=== PATIENT | male | born 1960 | race Caucasian/White ===

== ENCOUNTER 2018-08-26 12:29 | Outpatient (CLI) | payer BC, SELFPAY ==
[2018-08-26 13:51] LABS: Cholesterol 170 mg/dL (50-200); HDL Cholesterol 40 mg/dL (40-60); LDL CHOLESTEROL 94 mg/dL (<100); Triglyceride 244 mg/dL (30-150)
== END 2018-08-26 12:49 ==
PROVIDERS: PCP Internal Medicine; Visit Provider Student in an Organized Health Care Education/Training Program
DX: I48.0 Paroxysmal atrial fibrillation (principal); E78.00 Pure hypercholesterolemia, unspecified; I10 Essential (primary) hypertension
CPT/HCPCS: 36415; 80061; 83721

== ENCOUNTER 2018-11-04 11:07 | Outpatient (REF) | payer BC, SELFPAY ==
[2018-11-04 20:11] LABS: Anion Gap 6.5 mmol/L (3-11); BUN 20 mg/dL (7-18); CO2 30.5 mmol/L (21.0-32.0); CREATININE 0.93 mg/dL (0.70-1.30); Calcium 9.1 mg/dL (8.5-10.1); Chloride 105 mmol/L (98-107); Glucose 106 mg/dL (70-100); Potassium 3.8 mmol/L (3.5-5.1); Sodium 142 mmol/L (136-145)
== END 2018-11-04 11:27 ==
LOC: NCHCN 11:07
PROVIDERS: PCP Internal Medicine; Visit Provider Physician Assistant Medical
DX: I10 Essential (primary) hypertension (principal)
CPT/HCPCS: 80048

== ENCOUNTER 2020-05-18 08:14 | Outpatient (REF) | payer BC, SELFPAY ==
[2020-05-18 19:16] LABS: Abs Immature Grans 0.02 10^3/uL (0.0-0.06); Absolute Basophil Count 0.04 10^3/uL (0.0-0.2); Absolute Eosinophil Count 0.34 10^3/uL (0.0-0.7); Absolute Lymphocyte Count 1.94 10^3/uL (1.2-3.4); Absolute Monocyte Count 0.81 10^3/uL (0.1-0.8); Absolute Neutrophil Count 4.05 10^3/uL (1.2-6.7); Basophils % 0.6; Eosinophils % 4.7; HCT 43.4 % (40.0-50.0); Immature Grans % 0.3; Lymphocytes % 26.9; MCH 30.8 pg (27.0-33.0); MCHC 34.6 % (32.0-36.0); MCV 89.1 fL (80-95); MPV 10.4 fL (8.0-11.0); Monocytes % 11.3; Neutrophils % 56.2; Nucleated RBC 0 %; Platelet Count 233 10^3/uL (130-400); RBC 4.87 10^6/uL (4.36-5.78); RDW 12.8 % (11.8-14.1); RDW-SD 41.5 fL
[2020-05-18 19:31] LABS: ALT 35 U/L (16-63); AST 20 U/L (15-37); Albumin 4.2 g/dL (3.4-5.0); Alkaline Phosphatase 96 U/L (46-116); Anion Gap 3.4 mmol/L (3-11); BUN 22 mg/dL (7-18); Bilirubin, Total 0.9 mg/dL (0.2-1.0); CO2 30.6 mmol/L (21.0-32.0); CREATININE 0.84 mg/dL (0.70-1.30); Calcium 9.1 mg/dL (8.5-10.1); Calculated LDL 130 mg/dL (<100); Chloride 106 mmol/L (98-107); Cholesterol 208 mg/dL (<200); Glucose 93 mg/dL (74-106); HDL Cholesterol 42 mg/dL (40-60); Potassium 3.9 mmol/L (3.5-5.1); Sodium 140 mmol/L (136-145); Total Protein 7.4 g/dL (6.4-8.2); Triglyceride 180 mg/dL (<150)
[2020-05-18 19:52] LABS: Hemoglobin A1C 5.8 % (<5.7)
== END 2020-05-18 08:34 ==
LOC: NCHCN 08:14
PROVIDERS: PCP Internal Medicine; Visit Provider Physician Assistant
DX: Z00.00 Encounter for general adult medical examination without abnormal findings (principal); E78.5 Hyperlipidemia, unspecified; I10 Essential (primary) hypertension; I48.91 Unspecified atrial fibrillation; G47.30 Sleep apnea, unspecified
CPT/HCPCS: 80053; 80061; 83036; 85025

== ENCOUNTER 2021-06-19 13:25 | Outpatient (REF) | payer BC, SELFPAY ==
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
[2021-06-19 17:57] LABS: ALT 44 U/L (16-63); AST 20 U/L (15-37); Albumin 3.8 g/dL (3.4-5.0); Alkaline Phosphatase 108 U/L (46-116); Anion Gap 8.4 mmol/L (3-11); BUN 22 mg/dL (7-18); Bilirubin, Total 0.5 mg/dL (0.2-1.0); CO2 28.6 mmol/L (21.0-32.0); CREATININE 0.8 mg/dL (0.70-1.30); Chloride 105 mmol/L (98-107); Glucose 108 mg/dL (74-106); LDL CHOLESTEROL 74 mg/dL (<100); Potassium 3.5 mmol/L (3.5-5.1); Sodium 142 mmol/L (136-145); Total Protein 7.3 g/dL (6.4-8.2)
== END 2021-06-19 13:26 | disposition home or self-care (01) ==
LOC: NCHCN 13:25
PROVIDERS: PCP Internal Medicine; Visit Provider Physician Assistant
DX: I10 Essential (primary) hypertension (principal); R73.03 Prediabetes
CPT/HCPCS: 80053; 83721

== ENCOUNTER 2022-06-26 16:29 | Outpatient (REF) | payer BC, SELFPAY ==
[2022-06-26 20:39] LABS: Anion Gap 4.3 mmol/L (3-11); BUN 20 mg/dL (7-18); CO2 31.7 mmol/L (21.0-32.0); Calcium 9.6 mg/dL (8.5-10.1); Chloride 104 mmol/L (98-107); Estimated GFR 84.57 (mL/min/1.73m2); Glucose 106 mg/dL (74-106); Potassium 4.4 mmol/L (3.5-5.1); Sodium 140 mmol/L (136-145)
[2022-06-26 20:43] LABS: Hemoglobin A1C 5.9 % (<5.7)
== END 2022-06-26 16:30 | disposition home or self-care (01) ==
LOC: NCHCN 16:29
PROVIDERS: PCP Internal Medicine; Visit Provider Physician Assistant
DX: Z00.00 Encounter for general adult medical examination without abnormal findings (principal); I10 Essential (primary) hypertension; R73.03 Prediabetes
CPT/HCPCS: 80048; 83036

== ENCOUNTER 2023-06-24 16:40 | Outpatient (REF) | payer BC, SELFPAY ==
[2023-06-24 20:08] LABS: ALT 27 U/L (16-63); AST 19 U/L (15-37); Albumin 3.8 g/dL (3.4-5.0); Alkaline Phosphatase 87 U/L (46-116); BUN 26 mg/dL (7-18); CREATININE 0.9 mg/dL (0.70-1.30); Calcium 9.5 mg/dL (8.5-10.1); Chloride 103 mmol/L (98-107); Estimated GFR 95.37 (mL/min/1.73m2); Glucose 118 mg/dL (74-106); LDL CHOLESTEROL 106 mg/dL (<100); Potassium 3.8 mmol/L (3.5-5.1); Sodium 139 mmol/L (136-145); Total Protein 7.4 g/dL (6.4-8.2)
[2023-06-24 21:33] LABS: Bilirubin, Total 0.5 mg/dL (0.2-1.0)
== END 2023-06-24 16:41 | disposition home or self-care (01) ==
LOC: NCHCN 16:40
PROVIDERS: PCP Internal Medicine; Visit Provider Physician Assistant
DX: Z00.00 Encounter for general adult medical examination without abnormal findings (principal); I10 Essential (primary) hypertension; E78.5 Hyperlipidemia, unspecified
CPT/HCPCS: 80053; 83721

== ENCOUNTER 2023-07-10 11:28 | Outpatient (CLI) | payer BC, SELFPAY ==
--- NOTE | 2023-07-10 11:10 | DI.RAD_ITS ---
Exam(s) XR PELVIS AP EXAM: XR PELVIS AP CLINICAL HISTORY: RIGHT HIP PAIN. TECHNIQUE: 2D digital imaging was performed.One images were obtained. COMPARISON: CR XR HIPS BILAT MIN 2V EA from 12/27/2020 FINDINGS: BONES: No acute fracture is present. No bony destructive lesion is seen. JOINTS: No dislocation present. In the right hip there are marked degenerative changes characterized by joint space narrowing and osteophytes. Subchondral cysts are seen both at the acetabular roof and the femoral head. Moderate degenerative changes are seen in the left hip characterized by joint spa ce narrowing and osteophytes. There is a subchondral cyst in the acetabular roof. SOFT TISSUE: Surgical clips are seen inferior to the pelvis likely reflecting prior vasectomy. IMPRESSION: Osteoarthritis of the hips, right greater than left. DATA REPOSITORY: RADIATION DOSE DELIVERED:
== END 2023-07-10 11:29 | disposition home or self-care (01) ==
LOC: DIORS 11:29
PROVIDERS: PCP Internal Medicine; Referring Provider Internal Medicine; Visit Provider Student in an Organized Health Care Education/Training Program
DX: M16.0 Bilateral primary osteoarthritis of hip (principal)
CPT/HCPCS: 72170

== ENCOUNTER 2023-08-21 02:14 | Outpatient (CLI) | payer BC, SELFPAY ==
[2023-08-21 11:28] LABS: HCT 42.8 % (40.0-50.0); HGB 14.5 g/dL (13.5-17.5); MCH 30.4 pg (27.0-33.0); MCHC 33.9 % (32.0-36.0); MCV 90 fL (80-95); MPV 9.7 fL (8.0-11.0); Platelet Count 213 10^3/uL (130-400); RBC 4.77 10^6/uL (4.36-5.78); RDW 12.4 % (11.8-14.1); RDW-SD 40.9 fL; WBC 8.38 10^3/uL (4.4-10.8)
[2023-08-21 11:48] LABS: Anion Gap 5.4 mmol/L (3-11); BUN 21 mg/dL (7-18); CO2 30.6 mmol/L (21.0-32.0); CREATININE 0.9 mg/dL (0.70-1.30); Calcium 9.2 mg/dL (8.5-10.1); Chloride 104 mmol/L (98-107); Estimated GFR 95.37 (mL/min/1.73m2); Glucose 111 mg/dL (74-106); Potassium 4.2 mmol/L (3.5-5.1); Sodium 140 mmol/L (136-145)
== END 2023-08-21 02:15 | disposition home or self-care (01) ==
LOC: LBO 02:14
PROVIDERS: PCP Internal Medicine; Visit Provider Student in an Organized Health Care Education/Training Program
DX: M16.11 Unilateral primary osteoarthritis, right hip (principal); Z01.818 Encounter for other preprocedural examination
CPT/HCPCS: 36415; 80048; 85027

== ENCOUNTER 2023-09-03 06:08 | Day surgery (SDC) | payer BC, SELFPAY ==
[2023-09-03 06:10] VITALS: BP 132/71; PULSE 56; RESP 16; TEMP 36.2; O2SAT 98
--- OUTSIDE RECORDS SUMMARY | 2023-09-03 06:10 | XMS_ITS | Continuity of Care Document ---
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 Name Role Phone [facility]anna [facility] Primary [facility] Physician [facility] Date[facility]12/22 - 08/12/[address] [address] Encounter Diagnosis Encounter for screening for malignant neoplasm of colon(Final) - Diverticulosis of large intestine without perforation or abscess without bleeding(Final) - Personal history of colonic polyps(Final) - Discharge Disposition: Home or Self Care Attending Physician: Bill Sandy MD Admitting Physician: Bill Sandy MD Referring Physician: Bill Sandy MD Allergies, Adverse Reactions, Alerts Substance Reaction Severity Status erythromycin Unknown Unknown Active amoxicillin Nausea Moderate Active azithromycin Unknown Active sulfa drugs Rash Moderate Active Functional Status 08/12/22 ADLs Independent Family Member Travel History No recent t ravel Recent Travel History No recent travel Other exposure to Infectious Disease Non e 08/06/22 Living Situation Home independently Immunizations Given and Recorded Vaccine Date Status Refusal Reason SARS-CoV-2 (COVID-19) mRNA-1273 vaccine 01/17/21 R ecorded SARS-CoV-2 (COVID-19) mRNA-1273 vaccine 12/20/20 R ecorded Medications aspirin 81 mg oral capsule 0 Refill(s) Start Date: 04/22/22 Status: Ordered metoprolol succinate 25 mg oral tablet, extended release 0 Refill(s) Start Date: 04/22/22 Status: Ordered pravastatin 10 mg oral tablet 0 Refill(s) Start Date: 04/22/22 Status: Ordered Problem List Condition Confirmation Course Effective Dates Status Health St atus Informant Atrial fibrillation Confirmed Active Fatigue Confirmed Active Hypertensive disorder Confirmed Active Injury of ankle Confirmed Active Obstructive sleep apnea syndrome Confirmed Active Sleep disorder Confirmed Active Snoring Confirmed 04/03/18 Active Procedures Procedure Date Related Diagnosis Body Site Status Colonoscopy 1 02/28/19 Completed Appendectomy 1970 Completed Amputation- Toe 2 Complet ed ORIF - Forearm Completed 1polyp of colon 2Right great toe Vital Signs Most recent to oldest [Reference Range]: 1 2 3 Temperature Oral [35.8-37.3 Deg C] 36.5 Deg C (08/12/22 9:11 AM) Temperature Temporal Artery [36-38 Deg C] 35.9 Deg C *LOW* (08/12/22 11:10 AM) 35.9 Deg C *LOW* (08/12/22 10:26 AM) Peripheral Pulse Rate [60-100 bpm] 55 bpm *LOW* (08/12/22 11:10 AM) 57 bpm *LOW* (08/12/22 11:00 AM) 60 bpm (08/12/22 10:56 AM) Heart Rate Monitored [60-100 bpm] 68 bpm (08/12/22 11:10 AM) 58 bpm *LOW* (08/12/22 11:00 AM) 66 bpm (08/12/22 10:56 AM) Respiratory Rate [12-24 br/min] 13 br/min (08/12/22 11:10 AM) 16 br/min (08/12/22 11:00 AM) 17 br/min (08/12/22 10:56 AM) Blood Pressure [90-140/60-90 mmHg] 111/66mmHg (08/12/22 11:10 AM) 107/62mmHg (08/12/22 11:00 AM) 99/58mmHg (08/12/22 10:56 AM) Mean Arterial Pressure, Cuff [65-140 mmHg] 81 mmHg (08/12/22 11:10 AM) 77 mmHg (08/12/22 11:00 AM) 72 mmHg (08/12/22 10:56 AM) Weight 84.000 kg (08/12/22 9:11 AM) Weight Dosing 84.000 kg (08/12/22 9:11 AM) Height 180.000 cm (08/12/22 9:11 AM) Height/Length Dosing 180.000 cm (08/12/22 9:11 AM) Body Mass Index 25.930 kg/m2 (08/12/22 9:11 AM) Social History Social History Type Response Tobacco Never tobacco user T obacco Use:. Sex Male Hospital Discharge Instructions Patient Education 08/12/2022 09:47:25 ss colonoscopy discharge instructions (CUSTOM) COLONOSCOPY / SIGMOIDOSCOPY Following day: Return to full activity, including work. Diet: Eat and drink normally, unless instructed otherwise. Treatment for common after affects: Mild abdominal pain, bloating, or excessive gas: Rest, eat lightly and use a heating pad. Symptoms to watch for and report to your physician: SEVERE abdominal pain or bloating. Fever within 24 hours after procedure. A large amount of rectal bleeding. (A small amount of blood from the rectum is not serious, especially if hemorrhoids are present.) If bright red rectal bleeding occurs, call your physician. you have had a Colonoscopy: Do not attempt to drive a vehicle or operate power equipment of any kind for at least 24 hours after discharge from the hospital. Do not consume alcoholic beverages or other mood-altering drugs on the day of surgery. Mild irritation at needle site: Apply warm, moist pack to area for 20 minutes four times a day for 2-3 days. Call physician if persistent redness and/or drainage at needle site. In the event of any problems after surgery, do not hesitate to contact your doctor, [facility] , or the Emergency Room at [phone]. Diagnosis: Diverticulosis Doctor: Vika Repeat colonoscopy in 5 Years with extened prep. The office will contact you in 5 years to schedulecolonoscopy. Discharge instructions * Grace Blevins: PERFORM Event Display: Discharge Instructions Authored Date: [id number] ATILIOCARLOS Martini :1960 Age:62 years Sex:Male Visit Date:08/12/2022 Primary Care Physician: David Ludwig MD Hospital Discharge Instructions We would like to thank you for allowing us to assist you with your healthcare needs. The following includes patient education materials and information regarding your injury/illness. After you leave the hospital, you may get your health information including your test results, physician notes and discharge information by accessing your Patient Portal. Your Summary Your Care Team Admitting Physician - Bill Sandy MD Attending Physician - Bill Sandy MD Primary Care Physician - [facility], David Aguilar MD Referring Physician - Bill Sandy MD Education Materials COLONOSCOPY / SIGMOIDOSCOPY ? Following day: Return to full activity, including work. Diet: Eat and drink normally, unless instructed otherwise. ? Treatment for common after affects: Mild abdominal pain, bloating, or excessive gas: Rest, eat lightly and use a heating pad. ? Symptoms to watch for and report to your physician: SEVERE abdominal pain or bloating. ? Fever within 24 hours after procedure. ? A large amount of rectal bleeding. (A small amount of blood from the rectum is not serious, especially if hemorrhoids are present.) ? If bright red rectal bleeding occurs, call your physician. ? you have had a Colonoscopy: Do not attempt to drive a vehicle or operate power equipment of any kind for at least 24 hours after discharge from the hospital. ? Do not consume alcoholic beverages or other mood-altering drugs on the day of surgery. ? Mild irritation at needle site: Apply warm, moist pack to area for 20 minutes four times a day for 2-3 days. ? Call physician if persistent redness and/or drainage at needle site. ? In the event of any problems after surgery, do not hesitate to contact your doctor, [facility] , or the Emergency Room at [phone]. Diagnosis: Diverticulosis Doctor: Vika Repeat colonoscopy in 5 Years with extened prep. The office will contact you in 5 years to schedulecolonoscopy. Patient Name:CARLOS TRIMBLE I have received this information and my questions have been answered. Patient/Emission Specialist Name: Patient/Emission Specialist Signature: Relationship to Patient: Witness Name/Signature: Date: Electronically Signed on: 08/12/2022 10:48 ESTSigned by:BERTO RIZZO study * Danielle Mcfarland: PERFORM Event Display: Telemetry Strips Authored Date: [id number] History and physical note * Danielle Mcfarland: PERFORM Event Display: History and Physical Authored Date: [id number] * Bill Sandy MD: PERFORM Event Display: History and Physical Authored Date: [id number] ATILIO CARLOS :1960 Age:62 years Sex:Male Visit Date:08/12/2022 Primary Care Physician: David Ludwig MD See paper H&P; pt examined. Proceed as planned.? Bill Sandy MD 08/12/2022 ?? Electronically Signed on 08/12/22 09:37 AM Bill Sandy MD * Jacque Rueda: PERFORM Event Display: History and Physical Authored Date: [id number] CARLOS TRIMBLE :1960 Age:62 years Sex:Male Primary Care Physician: David Ludwig MD Patient recently had a colonoscopy. Was incomplete due to poor bowel prep Electronically Signed on 05/16/22 08:07 AM Jacque Rueda Patient Care team information Personnel Name: David Ludwig MD Address: Address: [address]
--- OUTSIDE RECORDS SUMMARY | 2023-09-03 06:10 | XMS_ITS | Continuity of Care Document ---
Author Name Unknown Organization [facility] Address [address] [place] [address] Care Team Providers Care Coordinator Of Placement Name Role Phone Primeau [facility] Physician Encounter [facility] Date(s): 07/04/23 - 07/04/23 [facility] [address] [place] [address] Encounter Diagnosis Obstructive sleep apnea syndrome(Discharge Diagnosis) - 07/02/23 Discharge Disposition: Home or Self Care Attending Physician: Polly Dubois [employer] Allergies, Adverse Reactions, Alerts Substance Reaction Severity Status erythromycin Unknown Unknown Active amoxicillin Nausea Moderate Active azithromycin Unknown Active sulfa drugs Rash Moderate Active Immunizations Given and Recorded Vaccine Date Status Refusal Reason SARS-CoV-2 (COVID-19) mRNA-1273 vaccine 01/17/21 R ecorded SARS-CoV-2 (COVID-19) mRNA-1273 vaccine 12/20/20 R ecorded Medications aspirin 81 mg oral capsule 0 Refill(s) Start Date: 04/22/22 Status: Ordered hydroCHLOROthiazide 12.5 mg oral capsule 12.5 mg = 1 cap, Oral, Daily, # 30 cap, 0 Refill(s) Start Date: 07/02/23 Status: Ordered metoprolol succinate 25 mg oral tablet, extended release 0 Refill(s) Start Date: 04/22/22 Status: Ordered pravastatin 10 mg oral tablet 0 Refill(s) Start Date: 04/22/22 Status: Ordered Problem List Condition Confirmation Course Effective Dates Status Health St at[facility] Informant Atrial fibrillation Confirmed Active Fatigue Confirmed Active Hypertensive disorder Confirmed Active Injury of ankle Confirmed Active Obstructive sleep apnea syndrome 1 Confirmed Active Snoring Confirmed 7/13/18 Active 1CPAP 6-16 cm [place] Procedures Procedure Date Related Diagnosis Body Site Status Colonoscopy 1 08/11/22 Completed Colonoscopy 2 02/28/19 Completed Appendectomy 1970 Completed Amputation- Toe 3 Complet ed ORIF - Forearm Completed 1Screening recommendations: Colonoscopy in 5 years with extended bowel prep 2polyp of colon 3Right great toe Vital Signs Most recent to oldest [Reference Range]: 1 Peripheral Pulse Rate [60-100 bpm] 54 bp m *LOW* (07/04/23 12:13 PM) Blood Pressure [90-140/60-90 mmHg] 127/7 5mmHg (07/04/23 12:13 PM) Weight 92.99 kg (07/04/23 12:13 PM) Weight Measured (lbs) 205.008 lb (07/04/23 12:13 PM) Height 180 cm (07/04/23 12:13 PM) Height/Length Measured (inches) 70.87 in ch (07/04/23 12:13 PM) BSA Measured 2.16 m2 (07/04/23 12:13 PM) Body Mass Index 28.7 kg/m2 (07/04/23 12:13 PM) Social History Social History Type Response Tobacco Never tobacco user T obacco Use:. Sex Male Polysomnography (sleep) study * Levy Guerrero: PERFORM Event Display: Sleep Study Authored Date: Progress note * Levy Guerrero: PERFORM Event Display: Progress Note - Physician Authored Date: Physician Outpatient Note * Polly Dubois [employer]: PERFORM Event Display: Office Clinic Note Physician Authored Date: CARLOS TRIMBLE :1960 Age:63 years Sex:Male Visit Date:07/04/2023 Primary Care Physician: Joanna [facility], Chiquis Aguilar MD History of Present Illness Carlos Trimble comes in for SAGAR follow-up. ?? Carlos was last seen by me on 08/10/2019. He has a history of HTN and a-fib.? PSG on 05/09/18 (BMI 31.42). Sleep efficiency was 95%, AHI 18.1/hr, RDI 19.5/hr, REM AHI 47.8/hr,REM RDI 49.9/hr, supine AHI 26/hr, right lateral AHI 0/hr, left lateral AHI 1/hr, sp02 fer 69%, 24 minutes were spent at a saturation <88%, arousal index 7/hr, PLMi 0.2/hr, PLM arousal index 0.2/hr. EKG PVC???s. ?? Titration which was completed on 11/29/18 (BMI 30.42), sleep efficiency was 87%, CPAP was titrated from 6 to 8 cm. Arousal index 6/hr, PLMi 0/hr, EKG NSR. CPAP 7 & 8 cm were effective including insupine sleep (no REM sleep seen). CPAP 6-14 cm recommended. ?? Last visit he was using CPAP 6-16 cm with good compliance and reduction in AHI. He feels things aregoing pretty well. He is still having hip problems so often is either sleeping in his recliner many nights or at least part of the night. He gets to bed around 2-3 am (works second shift), he fallsasleep easily most nights. He wakes up 1/night to urinate or form hip pain. He gets up at?? 8-8:30 am. He tends to nap for an hour around 1 pm. He is not snoring or waking choking/gasping, he is not having nocturnal reflux, night sweats or morning headaches. He has less fatigue when using CPAP. ?? He tolerates his FFM well and gets his supplies regularly from [employer]. ?? He is seeing Dr Parsons for a hip replacement hopefully in the near future. ?? ESS today COMPLIANCE DATA REVIEWED WITH PATIENT: Dates 06/01/23-06/30/23, Used nights, average use 4??hrsand 33 minutes. Mean pressure 7.9??cm, 90th percentile pressure 9.5??cm, time in large air leak 0??minutes, AHI 1.9/hr. Physical Exam Vitals & Measurements HR:??54??(Peripheral)?? BP:??127/75?? SpO2:??97%?? HT:??180??cm?? WT:??92.99??kg?? BMI:??28.7?? BSA:??2.16?? GENERAL: answers questions appropriately, well groomed, normal weight HEAD: normocephalic and atraumatic. EYES: non icteric LUNGS: CTA all hdez. Good air movement throughout. CARDIO:??bradycardic without murmur, gallop or thrill. NEURO: alert and oriented, normal gait. PYSCH: normal mood and affect. CUTANEOUS: no overt lesions or rashes.?? Clinic Assessment/Plan 1.??Obstructive sleep apnea syndrome??G47.33 SAGAR with an AHI of 18.1/hr and 02 fer 69%. He has been using CPAP 6-16 cm. He has mediocre compliance and an excellent reduction in AHI. His use continues to be down because he has hip pain that ispreventing him from sleeping in bed much of the time. He either sleeps in his recliner all night orfor part of the night because he finds it more comfortable. He is in the process of being evaluatedfor a hip replacement and is encouraged to use CPAP every night when he is able to for the most benefit. He has lost a significant amount of weight since his PSG but he does not find the pressure toomuch or have any symptoms of aerophagia. He is advised to keep up with the routine maintenance of the machine and to clean/replace parts as needed. I will see him back in two years. He is asked to call our office for any sleep related questions or concerns. I provided greater than 20 minutes in the care of this patient, more than half the time was spent in [id number] counseling. Problem List/Past Medical History Ongoing Atrial fibrillation Fatigue Hypertensive disorder Injury of ankle Obstructive sleep apnea syndrome Snoring Historical Sleep disorder Procedure/Surgical History ???Colonoscopy (08/12/2022)???Colonoscopy (03/01/2019)???Appendectomy (1970)???Amputation- Toe???ORIF - Forearm Medications What How Much When Instructions Unchanged aspirin (aspirin 81 mg oral capsule) Contact prescribing physician if questions or concerns ?? Unchanged hydroCHLOROthiazide (hydroCHLOROthiazide 12.5 mg oral capsule) 1 Capsules Oral (given by mouth) Every day Contact prescribing physician if questions or concerns ?? Unchanged metoprolol (metoprolol succinate 25 mg oral tablet, extended release) Contact prescribing physician if questions or concerns ?? Unchanged pravastatin (pravastatin 10 mg oral tablet) Contact prescribing physician if questions or concerns ? What How Much When Comments Stop Taking amLODIPine (amLODIPine 5 mg oral tablet) 1 tab Oral (given by mouth) Every day Allergies amoxicillin??(Nausea) sulfa drugs??(Rash) azithromycin erythromycin??(Unknown) Social History Alcohol Current, Beer, Wine, 1-2 times per week Electronic Cigarette/Vaping Electronic Cigarette Use: Never. Home/Environment Feels unsafe at home: No. Substance Use Past, Marijuana, 1-2 times per week Tobacco Never tobacco user Tobacco Use:. Family History Breast cancer: Mother. Immunizations Vaccine Date Status SARS-CoV-2 (COVID-19) mRNA-1273 vaccine 01/17/2021 Recorded SARS-CoV-2 (COVID-19) mRNA-1273 vaccine 12/20/2020 Recorded Electronically Signed on 07/04/23 12:41 PM Polly Dubois NP * Levy Guerrero M: PERFORM Event Display: Office Clinic Note Physician Authored Date: [id number] Print Last amended by POLLY DUBOIS NP on 09/20/2021 at 1:34pm View Changes: [email or web address] 09/20/2021 01:34pm Patient Name CARLOS TRIMBLE (61yo, M) ID# [id number] Appt. Date/Time 08/10/2021 11:15AM 1960 Service Dept. [facility] Provider POLLY DUBOIS NP Insurance Med Primary: [place] Insurance # : [id number] Policy/Group # : [id number] Employer Name : [employer] Prescription: OPTUM_IRX - Member is eligible. details Chief Complaint None recorded. Patient's Care Team Vice Admiral: ARLETH STONE MD: [address] [place] [address] [address], [place] [address], , General Surgeon: MAXIMILIAN LANE MD: [address] [place] [address] , [place] [address], , Primary Care Provider: CHIQUIS SAAVEDRA MD: [address] [place] [address], , Other: [facility]: [address], [place] [address], , Patient's Pharmacies [id number] ([facility]): [address], [place] [address], , Vitals Ht: 5 ft 10 in Stated (177.8 cm) 08/10/2021 10:51 am Wt: 221 lbs With clothes (100.24 kg) 08/10/2021 10:52 am BMI: 31.7 08/10/2021 10:52 am BP: 151/76 08/10/2021 10:54 am Pulse: 60 bpm 08/10/2021 10:55 am O2Sat: 98% 08/10/2021 10:55 am Allergies Reviewed Allergies AMOXICILLIN: Nausea (Moderate) AZITHROMYCIN ERYTHROCIN Medications Reviewed Medications amLODIPine 5mg tablet daily 04/01/18 entered YEE Gerber CRT aspirin 81 mg tablet Take 1 tablet(s) every day by oral route. 04/03/18 entered DONNIE Freeman hydroCHLOROthiazide 12.5 mg tablet Take 1 tablet(s) every day by oral route. Internal Note: Pt. states he is no longer taking this. 04/01/18 entered YEE Gerber, CRISTY metoprolol succinate ER 25 mg tablet,extended release 24 hr Take 1 tablet(s) every day by oral route in the evening. 07/24/18 entered DONNIE Freeman pravastatin 10 mg tablet Take 1 tablet(s) every day by oral route. 03/12/19 entered Martha Urrutia Vaccines Vaccine Type Date Amt. Route Site [facility] Lot # [id number]. Exp. Date VIS VIS Given [employer] COVID-19 COVID-19, mRNA, LNP-S, PF, 100 mcg/0.5 mL dose (Moderna) 01/17/21 100 mcg Intramuscular Deltoid, Left [id number] [employer] 07/06/21 [facility] COVID-19, mRNA, LNP-S, PF, 100 mcg/0.5 mL dose (Moderna) 12/20/20 100 mcg Intramuscular Deltoid, Left [id number] [employer] 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 quit age 24) What was the date of your most recent tobacco screening?: 07/24/2018 What is your level of alcohol consumption?: (Notes: 2 beers daily) What is your level of caffeine consumption?: (Notes: 2 cups daily) Home and Environment Do you have any pets?: Yes (Notes: dogs) Activities of Daily Living Are you blind or do you have difficulty seeing?: No (Notes: contacts) Are you deaf or do you have serious difficulty hearing? : No [facility] General Social History List Language Difficulties: No Other Hard of hearing or deaf in one or both ears?: Yes (Notes: with background noise) Live alone or with others?: with others Gender Identity and LGBTQ Identity Surgical History Toe Amputation - Right great toe ORIF - left forearm Colonoscopy - 03/01/2019 - polyp of colon Appendectomy - 09/22/1969 Screening Name Score Notes [place] Sleepiness 10 HPI Carlos Trimble comes in for titration results and CPAP follow-up. He checked in 38 minutes past his appointment because he had the time wrong Carlos was last seen by me on 03/12/19. He has a history of HTN and a-fib. He had an ECHO 12/10/17 LV nml size and function, EF 60-65%, MV mildly calcified, LA mildly dilated, RV nml size and function. He had a cardiac event monitor 12/23/17 for nine days. Bursts of asymptomatic SVT longest 16 beats, fastest 187 bpm. He noted symptoms of witnessed apnea, snoring and daytime somnolence (ESS 15). He hada PSG on 05/09/18 (BMI 31.42). Sleep efficiency was 95%, AHI 18.1/hr, RDI 19.5/hr, REM AHI 47.8/hr, REM RDI 49.9/hr, supine AHI 26/hr, right lateral AHI 0/hr, left lateral AHI 1/hr, sp02 fer 69%, 24minutes were spent at a saturation <88%, arousal index 7/hr, PLMi 0.2/hr, PLM arousal index 0.2/hr. EKG PVC???s. Titration which was completed on 11/29/18 (BMI 30.42), sleep efficiency was 87%, CPAP was titrated from 6 to 8 cm. Arousal index 6/hr, PLMi 0/hr, EKG NSR. CPAP 7 & 8 cm were effective including insupine sleep (no REM sleep seen). CPAP 6-14 cm recommended. Last visit he was using CPAP 6-16 cm with great compliance and reduction in AHI and feeling better rested. No change. Atilio tells me he has been having a very hard time sleeping due to right hip pain. He needs to have the hip replacement. He can only get about four hours of sleep in bed and then he has to move to a recliner due to the pain. He sleeps soundly while he has the CPAP on. He says he was to get an email from [employer] regarding supplies and he has not had this in sometime so he is due for supplies. The airpressure feels ok. He is tolerating the mask well. He is not snoring with CPAP, he denies any nocturnal choking/gasping night sweats, or morning headaches. He continues to feel better rested with CPAP. ESS today 07/15 COMPLIANCE DATA REVIEWED WITH PATIENT: 07/09/21-08/07/21, Used 28/30 days, average use 4 hours 19 minutes a night, mean pressure 7.8cm, 90 th percentile pressure 10cm, time in large air leak 2 minutes, AHI 3.6/hour. ROS ROS as noted in the HPI Physical Exam Patient is a 61-year-old male. General: A&O, well groomed over weight. HEAD: normocephalic & atraumatic. EYES: non icteric. LUNGS: CTA all hdez. Good air movement. CARDIO: RRR without murmur, gallop or thrill. NEURO: A&O. Normal gait. PSYCH: Normal mood and affect. CUTANEOUS: no overt lesions or rashes Assessment / Plan 1. Obstructive sleep apnea syndrome - SAGAR with an AHI of 18.1/hr and 02 fer 69%. He has been using CPAP 6-16 cm. His compliance is downfrom the last time I saw him as he is now only averaging 4 hrs 9 min/night with CPAP (last visit was just over 6 hours) but this is because he is having hip pain and can only stay in bed for about four hours a night before he has to move to a chair. He is likely going to have this replaced in the near future. His AHI is at goal. He continues to feel better rested with CPAP and continued use is recommended. He was made aware of the recall and advised to register his machine with [employer] (he had not done this yet so Levy took care of it for him in clinic today).. I explained the exact risks of continuing to use the machine are unknown at this time and the decision to continue is up to him. He is reminded there are potential risks of not using CPAP as well. He is encouraged to keep up with the routine maintenance of the machine and to clean and replace parts as indicated. Drowsy driving precautions were reviewed. I will see him back in two years. He is asked to call the clinic for any sleep related questions orconcerns. ADDENDUM 09/20/21: patient said is noting he is snoring more. His AHI is great, mean pressure 7.5 cm, order in to increase to 8-16 cm I provided greater than 20 minutes in the care of this patient, more than half the time was spent in [id number] counseling. G47.33: Obstructive sleep apnea (adult) (pediatric) CPAP SUPPLIES - Please dispense all CPAP supplies PRN, contact him to set up email ordering as he has not been getting the emails recently. Qty: 1 Unit Refills: 0 Supplier: [facility] Return to Office to see Maximilian Lane MD at [facility] on or around 03/01/2022 to see POLLY DUBOIS NP at [facility] on or around 08/10/2023 Electronically Signed on 07/02/23 01:20 PM Levy Guerrero Patient Care team information Care Team Personnel Name: Joanna DENIS, Chiquis Aguilar MD Position: No Access Member Role: Primary Care Physician Address: Address: [place] [address]- Care Team Related Persons Name: EPI TRIMBLE Address: Home [address] Name: CANDIDA TRIMBLE Address: Home [address] [facility] [phone] Name: ZORAIDA TRIMBLE Address: Home Name: MICHAEL TRIMBLE Address: Home [address] [place] [phone] Name: MICHAEL TRIMBLE Address: Home [address] [place], [place] [id number]
[2023-09-03] MEDS: Lactated Ringers 1,000 ML 80 ML IV (06:51)
[2023-09-03] MEDS: Celecoxib 200 MG CAP 400 MG PO (06:51)
[2023-09-03] MEDS: Acetaminophen 500 MG TAB 1000 MG PO (06:51)
--- NOTE | 2023-09-03 07:03 | W.ANESPRE ---
General Info Date of Service Date Performed: 09/03/23 Height: 5 ft 10.5 in Weight: 93.8 kg Body Mass Index (BMI): 29.2 Surgical Procedure: Operation Date: 09/03/23 07:50 Proposed Procedure Side Surgeon p Hip Total Hip Anterior, ACTIS Right Bill Parsons MD Meds Allergies and Home Medications Allergies Allergy/AdvReac Type Severity Reaction Status Date / Time Sulfa (Sulfonamide Allergy Intermediate Hives Verified 09/03/23 06:09 Antibiotics) amoxicillin Allergy Other (See Verified 09/03/23 06:09 Comment) azithromycin Allergy Hives Verified 09/03/23 06:09 Home Medication Medication Instructions Recorded Metoprolol Succinate 25 mg PO DAILY 12/10/17 pravastatin 10 mg tablet 10 mg PO DAILY 01/27/19 acetaminophen 500 mg tablet 1,000 mg (2 x 500 mg) PO TID #90 09/03/23 tabs aspirin 81 mg tablet,delayed 81 mg PO BID #60 tabs 09/03/23 release celecoxib 200 mg capsule 200 mg PO BID #60 caps 09/03/23 dexamethasone 4 mg tablet 4 mg PO DAILY #2 tabs 09/03/23 oxycodone 5 mg tablet 5 mg PO Q4H PRN pain #20 tabs 09/03/23 pantoprazole 40 mg tablet,delayed 40 mg PO DAILY #30 tabs 09/03/23 release Current Visit Medications: Current Medications Generic Name Dose Route Start Last Admin Trade Name Freq PRN Reason Stop Dose Admin Acetaminophen 1,000 mg 09/03/23 06:00 09/03/23 06:51 Acetaminophen 500 Mg Tab PO 09/03/23 16:00 1,000 mg PREOP CALVIN Administration Celecoxib 400 mg 09/03/23 06:00 09/03/23 06:51 Celecoxib 200 Mg Cap PO 09/03/23 16:00 400 mg PREOP CALVIN Administration Tranexamic Acid 1,000 mg/ 60 mls @ 360 mls/hr 09/03/23 06:00 Sodium Chloride IV 09/03/23 16:00 PREOP CALVIN Ringer's Solution 1,000 mls @ 80 mls/hr 09/03/23 06:00 09/03/23 06:51 IV 10/02/23 23:59 80 mls/hr INFUSION CALVIN Administration Cefazolin Sodium/Dextrose 2 gm in 50 mls @ 100 mls/hr 09/03/23 06:00 Ancef Duplex IVPB 10/02/23 23:59 PREOP CALVIN IV Miscellaneous Supplies 1 each 09/03/23 06:00 Iv Access IV 10/02/23 23:59 DIRECTED CALVIN Sodium Chloride 0 ml 09/03/23 06:00 Normal Saline Flush 10 Ml Syr IV 10/02/23 23:59 PRN PRN Sodium Chloride 0 ml 09/03/23 06:00 Normal Saline 10 Ml Vial IJ 10/02/23 23:59 DIRECTED PRN Sterile Water 0 ml 09/03/23 06:00 Water,Injection,Sterile 10 Ml Vial IJ 10/02/23 23:59 DIRECTED PRN PFSH Active Problems Active Problems: Problem Status Onset Code Arthritis of left hip M16.12 Arthritis of right hip M16.11 Hypertension I10 Paroxysmal atrial fibrillation I48.0 Medical History Medical History (Updated 09/02/23 @ 10:33 by Quinten Handy) Hx of fracture of arm Medical History Comments:: Per pt. states his mother had a knee replacement and coded pt. stated he didn't know if it was the anesthesia Surgical History Surgical History (Updated 09/02/23 @ 10:33 by Quinten Handy) History of surgery on arm 2 plates in situ due to arm fracture Hx of appendectomy Tobacco Smoking/Tobacco Use Status: Former Tobacco Use Alcohol Alcohol Intake: current Alcohol intake frequency: 0-2 drinks per day Alcohol type: wine Substance Use Substance use: Occasionally Substance use type: marijuana Vital Signs and Lab Results Vital Signs Most Recent Vital Signs in EMR: Most Recent Vital Signs Temp Pulse Resp BP Pulse Ox 36.2 C L 56 L 16 132/71 98 09/03/23 06:10 09/03/23 06:10 09/03/23 06:10 09/03/23 06:10 09/03/23 06:10 Lab Results Blood Type / Crossmatch: No Data to Display Complete Blood Count: White Blood Count 8.38 10^3/uL (4.4-10.8) 08/21/23 11:15 Red Blood Count 4.77 10^6/uL (4.36-5.78) 08/21/23 11:15 Hemoglobin 14.5 g/dL (13.5-17.5) 08/21/23 11:15 Hematocrit 42.8 % (40.0-50.0) 08/21/23 11:15 Platelet Count 213 10^3/uL (130-400) 08/21/23 11:15 Complete Metabolic Panel: Sodium 140 mmol/L (136-145) 08/21/23 11:15 Potassium 4.2 mmol/L (3.5-5.1) 08/21/23 11:15 Chloride 104 mmol/L (98-107) 08/21/23 11:15 Carbon Dioxide 30.6 mmol/L (21.0-32.0) 08/21/23 11:15 BUN 21 mg/dL (7-18) H 08/21/23 11:15 Creatinine 0.9 mg/dL (0.70-1.30) 08/21/23 11:15 Est GFR (CKD-EPI 2020) 95.37 (mL/min/1.73m2) 08/21/23 11:15 Calcium 9.2 mg/dL (8.5-10.1) 08/21/23 11:15 Glucose 111 mg/dL (74-106) H 08/21/23 11:15 Liver Function Panel: No Data to Display Coagulation Panel: No Data to Display Cardiac Panel: No Data to Display Arterial Blood Gas: No Data to Display Venous Blood Gas: No Data to Display Pancreas Panel: No Data to Display Thyroid Panel: No Data to Display Infectious Disease: No Data to Display Blood Cultures: No Data to Display Toxicology Panel: No Data to Display Imaging and Studies Imaging and Studies Study information below may be from another EMR and interpreted by another provider. Please see original notes in EMR for more complete details. Echocardiogram Summary: Date of study: 12/10/2017 Transthoracic Echocardiography M-mode, complete 2D, complete spectral Doppler, and color Doppler *STUDY CONCLUSIONS* Summary: 1. Left ventricle: The cavity size was normal. Wall thickness was normal. Systolic function was normal. The estimated ejection fraction was 60-65%. Wall motion was normal; there were no regional wall motion abnormalities. Findings consistent with diastolic dysfunction. 2. Mitral valve: Mildly calcified annulus. There was mild regurgitation. 3. Left atrium: The atrium was mildly dilated. 4. Right ventricle: The cavity size was normal. Wall thickness was normal. Systolic function was normal. Anesthesia Assessment and Plan Anesthesia History Personal History: No History of Anesthesia Complications Family History: No Family History of Anesthesia Complications Exercise Tolerance Exercise Tolerance: Metabolic Equivalents>4 Pertinent Negatives Pertinent Negatives: No Symptoms of GERD and No Major Pulmonary Symptoms or Complaints Cardiac & Pulmonary Exam Cardiac Exam: Normal S1/S2 Heart Sounds Pulmonary Exam: Clear Bilateral Breath Sounds Implantable Cardiac Device Does patient have a Pacemaker or an ICD?: No Airway Exam Known Difficult Airway: No Mallampati Class: 2 Mouth Opening: Normal (> 3cm) Thyromental Distance: Greater than 3 cm Neck Range of Motion: Full ROM Neck Circumference: Normal Teeth Condition: Normal Dentition ASA Classification ASA Score: ASA 3 Emergency Case?: No NPO Status NPO Status: NPO Clears >2 hours, Solids >8 hours Anesthesia Plan Resuscitation Status: Full Code Anesthesia Technique: Spinal Anesthesia Airway Planned: Natural Airway Monitors Used: Standard Monitors
[2023-09-03 07:06] VITALS: BMI 29.2
--- NOTE | 2023-09-03 07:23 | W.PM.DSUDISC ---
Date of service: 09/03/23 Time of Service: 07:23 Discharge Plan Disposition Patient Disposition: Home Condition: Good Discharge Details Reason For Visit: R THR Attending Provider: Bill Parsons Primary Care Provider: David Marshall Home Meds and New Rx's Prescriptions: New acetaminophen 500 mg tablet 1,000 mg PO TID Qty: 90 3RF aspirin 81 mg tablet,delayed release (DR/EC) 81 mg PO BID Qty: 60 0RF celecoxib 200 mg capsule 200 mg PO BID Qty: 60 0RF pantoprazole 40 mg tablet,delayed release (DR/EC) 40 mg PO DAILY Qty: 30 0RF dexamethasone 4 mg tablet 4 mg PO DAILY Qty: 2 0RF oxycodone 5 mg tablet 5 mg PO Q4H MDD 6 tabs PRN (Reason: pain) Qty: 20 0RF Continued Metoprolol Succinate 25 MG TAB.ER.24H 25 mg PO DAILY pravastatin 10 mg tablet 10 mg PO DAILY Discontinued aspirin [Adult Low Dose Aspirin] 81 mg tablet,delayed release (DR/EC) 81 mg PO DAILY Discharge Instructions Additional Instructions: Total Hip Discharge Instructions Activity: The most important activity is to walk. You should try to take short walks a few times a day. You have no restrictions on movement or positioning, but do not try to force what you do. You will find some stiffness and weakness with hip flexion (lifting your knee). Do not try to strengthen this too early, continue to practice walking and stairs and this will come. - Outpatient physical therapy can be helpful to help return you to a normal gait and improve your flexibility and strength. This can start around 2 weeks. For some patients, it?s not necessary. Usually this is determined at the time of discharge or at the first post-operative visit. - You should wear the SANDRA hose on both legs for 2 weeks. Dressing: Keep the surgical dressing in place for at least one week. After the first week it may be removed and replace with light gauze and tape or nothing. It may get wet after 3 days but avoid soaking the dressing. If it gets wet, just lightly pat dry. It is important to always keep some gauze between skin folds, especially when you are sitting. Spend some time with the wound exposed when you are lying flat as the incision does wrinkle onto itself. Medications: - You should take Tylenol and an anti-inflammatory Celebrex as your primary pain control medications. If the Celebrex is too expensive or not covered, please call the office for another alternative (Advil/Ibuprofen or Naproxen/Aleve). - You have been prescribed a stronger pain medication Oxycodone for breakthrough pain, take as needed as prescribed. - You have also been prescribed a stomach acid reduction agent Pantoprozole to help reduce stomach acid and reflux. - You have also been prescribed Decadron to help with post-operative nausea and pain. You will take this for two days starting tomorrow. - You will be taking Aspirin 81mg twice a day for DVT prevention unless instructed otherwise. - If you have constipation you should take Colace or Miralax (both [id number]). It takes most people 3-4 days to have a bowel movement. Follow-up: 2 weeks If you have any acute concerns or questions, please do not hesitate to contact the office at [phone]. You may contact Dr. Parsons with any questions after hours through the hospital at [phone] or on his cell phone at [phone]. Referrals: Bill Parsons MD [ [facility] STAFF PHYSICIAN] - Equipment/Supplies: Walker Activity:: Activity as Tolerated Shower/Bathe:: 72 hours Diet:: As Tolerated DS: Diagnosis Discharge Diagnosis (1) Arthritis of right hip: Status: Acute
[2023-09-03] MEDS: ceFAZolin 2 GM/50 ML BAG IVPB (07:40)
--- NOTE | 2023-09-03 09:05 | DI.RAD_ITS ---
Exam(s) XR HIP RT IN OR EXAM: XR HIP RT IN OR CLINICAL HISTORY: arthritis. TECHNIQUE: 2D and realtime digital imaging was performed. COMPARISON: CR XR PELVIS AP from 07/10/2023 FINDINGS: Hard copy image shows placement of a right hip prosthesis. The alignment appears satisfactory. Please see procedure note for details. Fluoro time: 27.5seconds RADIATION DOSE DELIVERED: Ka,r=3.39 mGy
[2023-09-03 09:15] VITALS: BP 137/65; PULSE 62; RESP 16; TEMP 36.5; O2SAT 96
--- NOTE | 2023-09-03 09:15 | W.PM.OP ---
Date of service: 09/03/23 Time of Service: 08:00 Operative Note Operative Note DATE OF PROCEDURE: 09/03/23 PRE-OP DIAGNOSIS: Right Hip Osteoarthritis POST-OP DIAGNOSIS: same PROCEDURE: Right Anterior Total Hip Arthroplasty with Intraoperative Navigation SURGEON: Bill Parsons RESIN PAINTER: Lux Holder ANESTHESIA TYPE: Spinal Refer to Anesthesia Record ESTIMATED BLOOD LOSS: 100 PATHOLOGY: none sent TOURNIQUET TIME: 0 COMPLICATIONS: None Patient was transported to: PACU Patient's condition: stable Implants: 1. Depuy Reedy Acetabular Component, 58mm 2. Depuy Acetabular Liner, [id number] 3. Depuy Actis High Offset Collared Femoral Stem, Size 8 4. Depuy Altrx Ceramic Femoral Head, Size 36+1.5mm Indications: I have seen Anthony in clinic for symptoms of hip arthritis, confirmed with radiographic findings. He has exhausted nonoperative methods and was having significant limitations in daily function and desired better function and less pain. I discussed the technical details of a hip replacement. I explained the risks of the procedure to include, but not limited to, bleeding, infection, pain, stiffness, fracture, damage to nerves and vessels, damage to muscles and tendons, loosening, instability, leg length inequality, need for repeat procedure, blood clot and cardiopulmonary demise. Despite these risks, Anthony elected to proceed. Findings: There was significant signs of arthritis throughout the hip. Procedure Description: Anthony was greeted in the preoperative holding area where the correct side was identified and marked. The consent was reviewed with the patient and signed. The history and physical was updated. All questions were answered. He was taken back to the operating room. A spinal anesthestic was then administered. The feet were wrapped with cast padding and Coban and then placed into the boot liners and then into the boots. Care was taken to protect the skin and make sure the heels were fully down and the boots were stable. The patient was then positioned onto the HANA table. Both legs were held in a neutral position. SCDs were applied. The patient was then slid down onto a peroneal post. Prophylactic antibiotics in the form of Cefazolin were administered. 1g of Tranxemic Acid was given intravenously within 30 minutes of incision. The right leg was then prepped with Chloraprep and draped in a standard fashion. A second prep with Chloraprep was performed prior to placement of a shower-curtain type drape with Iodine impregnated skin protection. A timeout to confirm correct identity, side and site, procedure, allergies, anesthesia, and medical concerns was performed. An obliquely oriented incision was made starting lateral to the ASIS and running distal over the Tensor Fascia Aura (TFL) muscle belly toward the fibular head, approximately 10cm. The skin and soft tissue was dissected sharply, through Steve?s fascia, and to the fascia of the TFL. With the fascia and superior border of the IT band identified, the fascia was incised with a new knife just above any perforators from the IT band. The TFL muscle belly was bluntly dissected away from the fascia and moved laterally. The fat between TFL and rectus was identified to ensure the dissection was not within the TFL. Blunt dissection created space between abductors and the capsule and retractor was placed over the lateral femoral neck. The fibers of the rectus femoris tendon were identified and these were freed from the anterior capsule. A second cobra retractor was placed around the medial femoral neck. The TFL was further retracted laterally to show the deep fascia. Careful dissection through this layer identified three main crossing vessels of the lateral femoral circumflex. These were cauterized in multiple locations and then cut without any noticeable bleeding. The TFL was further released bluntly from the deep fascia to expose anterior hip capsule and fat The Darrell orthopaedic retractor was then placed beneath the TFL and against sartorius and medial soft tissues to protect and retract the soft tissues. A T-capsulotomy was then performed starting at the superior lateral acetabulum and moving distally to the intertrochanteric ridge. These capsular flaps were tagged with a No. 1 Ethibond and elevated from within. The capsular flaps were released to the shoulder of the lateral neck and to the lesser trochanter to give excellent visualization of the proximal femur. A neck osteotomy was performed using an oscillating saw based on preoperative templates. This cut started in the shoulder and of the lateral neck and exited medially. The saw was at all times directed medially to avoid injury to the greater trochanter. Gross traction was applied to the leg and the osteotomy opened. The femoral head was removed with a corkscrew, making sure to protect the TFL on its exit. Traction was released after head removal. This was measured on the back table to determine the starting reamer size. Portions of the rectus obscuring visualization were minimally elevated off the superior acetabulum. An anterior retractor was placed over the anterior wall between capsule and labrum and attached to the Gripper retraction system. The femur was rotated to 90 degrees and medial capsule was fully released until the lesser trochanter was palpable and visible; the femur was returned to 30 degrees. A posterior retractor was placed similarly between capsule and labrum. This provided excellent visualization. The contents of the cotyloid fossa were removed with electrocautery and the labrum was removed with a knife. There was a notable floor osteophyte. There was significant chondromalacia of the superior acetabulum. Acetabular reaming began with a 54mm reamer. This first reaming was directed anterior to posterior and medial to get down to the true floor. This was inspected and reamed until the true floor was reached. The anterior retractor was then released and entry and exit was provided by traction on the capsular flaps. I then reamed sequentially up to a 58mm reamer where good fit was obtained. The larger reamers were oriented based on anatomical reference of the anterior and lateral gallo to ensure proper abduction and anteversion. Positioning and size was confirmed with the fluoroscopy. A 58mm Depuy Reedy acetabular component was selected. The acetabulum was reamed around the periphery with the selected acetabular size to prevent a rim fit. The deep tissues were irrigated. The acetabular component was then impacted in a position of about 40-45 degrees of abduction and 15-20 degrees of anteversion, using the patient?s anatomy as the ultimate landmark. Fluoroscopy was used to confirm this. There was excellent city director of the acetabular component and the inserting handle was removed. The acetabular liner, Depuy [id number] polyethylene liner, was inserted and lined up with the tines of the acetabular component. There was no soft tissue interposition. The liner was then impacted into position and confirmed to be well-seated. A portion of the neil-articular cocktail was then injected around the acetabulum into the capsule and periosteum. This cocktail consisted of 123mg of Ropivacaine, 0.25mg of Epinephrine, 0.04mg of Clonidine, and 15mg of Ketorolac, diluted to 50cc. The leg was rotated to 120 degrees. Any remaining medial capsule was released until the lesser trochanter was easily palpable. A retractor was placed medially. The lateral capsule was further released into the shoulder to allow access to the greater trochanter. A [place] retractor was placed over the greater trochanter which allowed the trochanter to flip in front of the capsule for excellent exposure. The leg was brought down into maximal extension and 20 degrees of adduction while ensuring there was no impingement on the acetabulum. Any remnant capsule within the trochanter was released. Piriformis and obturator externis were identified and protected. There was excellent access to the proximal femur. The lateral neck remnant was removed with a rongeur. A blunt canal probe was used to identify the canal and trajectory for later broaching. A box osteotome initiated the broach course. A small curved rasp and a curved curette were used to work laterally. Broaching then began with a starter Actis broach. This was inserted manually around the trochanter and into the canal before mallet blows. The broach was seated to a few millimeters below the cut level based on the neck cut and the preoperative template. Sequential broaching was continued with the [employer] pneumatic broaching device until a tight fit was obtained with good rotational control of the femur. A trial high offset neck was inserted along with a +1.5 trial head. The leg was brought out of extension and adduction and then reduced with traction and internal rotation. The leg was stable anteriorly in a position of 30 degrees of extension and 90 degrees of external rotation. Fluoroscopy was used to ensure there was no fracture and the stem was seated well. Leg lengths were checked with an AP pelvis and pelvic reference points. Bureaux A Partager navigation system was used to confirm appropriate positioning and leg length and offset. Once content with the desired offset and leg lengths, the leg was brought back into extension, external rotation and adduction. The periosteum and surrounding tissue was injected with remaining portion of the neil-articular cocktail. The proximal femur was irrigated as well as the deep tissues. The [employer] Actis high offset collared stem, size 8, was then manually inserted into the proximal femur making sure to control rotation. It was then malleted into position with light blows, giving breaks to allow bone expansion and decrease risk of fracture. The selected Depuy Altrx Ceramic Head, size 36+1.5mm, was then placed onto the clean and dry trunnion and secured with impaction onto the tapered fit. The leg was brought back out of extension and adduction and reduced with traction and internal rotation. Stability was confirmed with no shuck at 90 degrees of external rotation and 30 degrees of extension. No impingement through range of motion arc. Final x-ray images were obtained with fluoroscopy to confirm adequate positioning and no intraoperative fracture. The deep tissues were thoroughly irrigated with Irrisept chlorhexadine solution. This was allowed to sit in the wound for 3 minutes before being thoroughly irrigated out with normal saline. The capsule was then reapproximated with the previously placed Ethibond sutures. The indirect head of the rectus and the capsule was closed with a #1 Vicryl. The TFL fascia was finally closed with a No. 2 Stratafix, barbed suture. Deep tissues were then reapproximated with 0 Vicryl and a running 2-0 Vicryl. The skin was closed with a running 4-0 Monocryl in a subcuticular fashion. This was reinforced with skin glue. A Mepilex silver dressing was applied. At the end of the case, all counts were correct. Anthony was transferred to the hospital bed without difficulty and suffering no apparent complication. Anthony has a good prognosis. Physical therapy will start today and without restrictions, weight-bearing as tolerated. Aspirin 81mg BID will be used for DVT prophylaxis.
[2023-09-03 09:48] VITALS: BP 126/60; PULSE 78; RESP 16; TEMP 36.6; O2SAT 98
--- NOTE | 2023-09-03 10:40 | PT.INIE ---
PT Notes Visit Reasons: R THR Physical Therapy Day Surgery Initial Evaluation Date: 09/03/2023 Referring Doctor: TAMIA Liu PT Orders: PT CONSULT: S/P Ortho Surgery Precautions: WBAT on the R LE with AD. Patient Profile/Admitting Diagnosis: Anthony is a 63-year-old degenerative joint disease of the right hip and status post right arthroplasty on postoperative day 0. PMHX: Hip Osteoarthritis Social History/Home Situation: Lives with in a private home with 6 steps to enter and a flight of steps to the bedroom on the second floor, both with a rail on the L going up. Independent with all aspects of ADLs prior to surgery. Equipment Owned/DME: None Subjective: 10/01 in the R hip Objective: General Observation: Resting in bed. Mepilex Ag over surgical incision. TEDS to be legs. present in room. Mental Status: A and O x 4 Pain: 10/01 in the R hip ROM: Right Lower Extremity: Hip flexion WFL. Hip abduction WFL. Knee flexion WFL. Ankle dorsiflexion WFL. Ankle plantarflexion WFL. Left Lower Extremity: Hip flexion WFL. Hip abduction WFL. Knee flexion WFL. Ankle dorsiflexion WFL. Ankle plantarflexion WFL. Strength: Right Lower Extremity: Hip flexors 4/5. Hip abductors 4/5. Knee flexors 5/5. Knee extensors 4/5. Ankle dorsiflexors 5/5. Ankle plantarflexors 5/5. Left Lower Extremity:Hip flexors 5/5. Hip abductors 5/5. Knee flexors 5/5. Knee extensors 5/5. Ankle dorsiflexors 5/5. Ankle plantarflexors 5/5. Sensation: Intact chest pain and light pressure in BLE Bed Mobility/Transfers: Minimla cueing provided for use of B hands as needed for support, movement sequence, AD management, and and posture to reduce fall risk and minimize pain report Supine to sit stand by assist Sit to stand stand by assist Stand to sit stand by assist Bed to chair stand by assist Gait: Facilitated safe and correct performance of level surface ambulation covering a distance of 150 feet using front-wheeled walker with reciprocal step through gait pattern requiring only standby assist and minimal verbal cueing for AD management, AD management, and posture. Stairs: Guided patient with safe and correct negotiation of 6 x 4 inch steps and 4 x 6 inch steps holding onto 1 rail with 1 hand and using a cane with the other hand requiring standby assist using step to gait pattern with minimal verbal cueing for movement sequence and AD management. Balance: Static Sitting: Normal Dynamic Sitting: Normal Static Standing: Fair Dynamic Standing: Fair Special Tests: Mobility Limitations Standardized Measure [facility] AM-PAC 6 clicks Basic Mobility Inpatient Short Form: 0% deficit Raw Score: 24 CMS Score: Informed Consent/Education: Patient instructed in purpose of PT consult. Packet containing [place] exercise protocol has been given to patient. Education and training on initial set of exercises that can be done at home have been completed with patient. Trained patient with correct performance of exercises below to maximize motor control, joint flexibility, soft tissue extensibility of the R hip musculature to facilitate return to independent functional mobility performance. Access Code: [email or web address] URL: [email or web address] Date: 09/03/2023 Prepared by: Rosibel Mixon Exercises - Gluteal Sets - 1 x daily - 7 x weekly - 1 sets - 10 reps - 5 hold - Supine Heel Slide - 1 x daily - 7 x weekly - 1 sets - 10 reps - 5 hold - Supine Ankle Pumps - 1 x daily - 7 x weekly - 1 sets - 10 reps - 5 hold - Seated March - 1 x daily - 7 x weekly - 1 sets - 10 reps - 5 hold - Seated Long Arc Quad - 1 x daily - 7 x weekly - 1 sets - 10 reps - 5 hold Assessment: Patient requires the use of a front wheeled walker for mobility ADL performance to maximize independence and reduce fall risk. Patient presents with clinical signs and symptoms consistent with current/admitting diagnoses that have resulted to mobility limitations, gait instability, generalized weakness, and impairment of motor control as demonstrated by the following impairment level findings: 1. Decreased strength to right hip major muscle groups 2. Impaired standing balance Impairments are contributing to the following functional limitations: 1. Inability to safely ambulate without assistive device 2. Increase completion time for mobility ADL performance 3. Increased fall risk Patient is assessed as a 29646 complexity based on the following: History: 63-year-old male with impairment level findings, functional limitations, and past medical history as indicated above Examination: Demonstrable impairment in strength, balance, and mobility level with underlying impairments and functional limitations as documented above Presentation: Evolving Decision Makin moderate complexity Goals: N/A. PT evaluation and 1-2 treatment sessions only for functional mobility training using recommended AD and for HEP instruction. Plan of Care/Treatment Plan: N/A. PT evaluation and 1-2 treatment session only for functional mobility training using recommended AD and for HEP instruction. DISCHARGE RECOMMENDATIONS: Home when medically cleared by orthopedic surgeon. Recommend outpatient PT services in order to optimize functional mobility outcomes and facilitate return to independent community ambulation without an assistive device. TREATMENT CODE/TIME: 77860 x 25 minutes for 1 unit beginning at 10:40 AM. Thank you for the opportunity to participate in the care of this patient. Rosibel Mixon PT, DPT, CLT [facility] [place], [place]
--- NOTE | 2023-09-03 10:54 | W.ANESPOSTOP ---
Postoperative Evaluation Date, Time and Location Date Performed: 09/03/23 Time Performed: 10:55 Patient Location: Day Surgery Unit Vital Signs Most Recent Imported Vital Signs: Most Recent Vital Signs Temp Pulse Resp BP Pulse Ox 36.6 C 78 16 126/60 98 09/03/23 09:48 09/03/23 09:48 09/03/23 09:48 09/03/23 09:48 09/03/23 09:48 Pain Score Most Recent Pain Score: Most Recent Pain Score Pain Level 0 09/03/23 09:48 Assessment Mental Status: Awake (Alert & Oriented to Patient Baseline) Airway and Respiratory Function: Patent airway with normal (patient baseline) respiratory exam Cardiovascular Function: Hemodynamically Stable Hydration Status: Adequately Hydrated Nausea & Vomiting: No Nausea or Vomiting Pain: Pt. Denies Any Pain Peripheral Nerve Block: Patient did not receive a nerve block
== END 2023-09-03 11:36 | disposition home or self-care (01) ==
PROVIDERS: PCP Internal Medicine; Visit Provider Student in an Organized Health Care Education/Training Program
PROC: (CPT 27130; principal; 2023-09-03 07:30)
DX: M16.11 Unilateral primary osteoarthritis, right hip (principal); I48.0 Paroxysmal atrial fibrillation; I10 Essential (primary) hypertension
CPT/HCPCS: 27130; 20985; 97162; 73501; J0690; J1100; J2250; J2405

== ENCOUNTER 2023-09-18 09:37 | Outpatient (CLI) | payer BC, SELFPAY ==
--- NOTE | 2023-09-18 09:15 | DI.RAD_ITS ---
Exam(s) XR HIP RT COMPLETE AP PELVIS EXAM: XR HIP RT COMPLETE AP PELVIS INDICATION: 1ST POST OP R [place]. COMPARISON: CR XR PELVIS AP from 07/10/2023 XA XR HIP RT IN OR from 09/03/2023 TECHNIQUE: 2D digital imaging was performed. Two views. FINDINGS: There been no change in the alignment of the right hip prosthesis. Degenerative changes are again noted in the left hip. A large subchondral cyst in the left superior acetabulum. DATA REPOSITORY: RADIATION DOSE DELIVERED:
--- OUTSIDE RECORDS SUMMARY | 2023-09-18 09:40 | XMS_ITS | Continuity of Care Document ---
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 Name Role Phone [facility] Encounter [facility] Date(s): 09/11/23 - 09/11/23 [facility] [address] [place] [address] Encounter Diagnosis Atrial fibrillation(Discharge Diagnosis) - 09/10/23 Discharge Disposition: Home or Self Care Attending Physician: Kan Gaston MD Allergies, Adverse Reactions, Alerts Substance Reaction Severity Status erythromycin Unknown Unknown Active amoxicillin Nausea Moderate Active azithromycin Unknown Active sulfa drugs Rash Moderate Active Immunizations Given and Recorded Vaccine Date Status Refusal Reason SARS-CoV-2 (COVID-19) mRNA-1273 vaccine 01/17/21 R ecorded SARS-CoV-2 (COVID-19) mRNA-1273 vaccine 12/20/20 R ecorded Medications Eliquis 5 mg oral tablet 5 mg = 1 tab, Oral, BID, # 180 tab, 4 Refill(s), Pharmacy: [facility], 179.07, cm, 09/11/23 13:59:00 EST, Height, 96.05, kg, 09/11/23 14:05:00 EST, Weight Dosing Start Date: 09/11/23 Status: Ordered hydroCHLOROthiazide 12.5 mg oral capsule [...] apnea syndrome 1 Confirmed Active Snoring Confirmed 04/03/18 Active 1CPAP 6-16 cm [place] Procedures Procedure Date Related Diagnosis Body Site Status Colonoscopy 1 08/11/22 Completed Colonoscopy 2 02/28/19 Completed Appendectomy 1970 Completed Amputation- Toe 3 Complet ed ORIF - Forearm Completed 1Screening recommendations: Colonoscopy in 5 years with extended bowel prep 2polyp of colon 3Right great toe Vital Signs Most recent to oldest [Reference Range]: 1 Peripheral Pulse Rate [60-100 bpm] 58 bp m *LOW* (09/11/23 1:59 PM) Blood Pressure [90-140/60-90 mmHg] 135/8 3mmHg (09/11/23 1:59 PM) Mean Arterial Pressure, Cuff [70-110 mmH g] 100 mmHg (09/11/23 1:59 PM) Weight 96.05 kg (09/11/23 1:59 PM) Weight Measured (lbs) 211.754 lb (09/11/23 1:59 PM) Weight Dosing 96.050 kg (09/11/23 1:59 PM) Height 179.07 cm (09/11/23 1:59 PM) Height/Length Measured (inches) 70.5 inc h (09/11/23 1:59 PM) BSA Measured 2.19 m2 (09/11/23 1:59 PM) Body Mass Index 29.95 kg/m2 (09/11/23 1:59 PM) Social History Social History Type Response Tobacco Never tobacco user T obacco Use:. Sex Male Physician Outpatient Note * Kan Gaston MD: PERFORM Event Display: Office Clinic Note Physician Authored Date: [id number] CARLOS TRIMBLE :1960 Age:63 years Sex:Male Visit Date:09/11/2023 Primary Care Physician: Joanna [facility], David Aguilar MD History of Present Illness Cardiac Problems: 1. Atrial Fibrillation, [id number]-GDBm of 1 (hypertension), on aspirin 2. Obstructive Sleep Apnea ?? This is a 63 year old man who last saw Dr. Moore in December of 2021 for routine cardiology follow up.He had no cardiac complaints at the time of his visit. Dr. Moore made no changes to his medication regimen.??His frequency of atrial fibrillation is unknown. Sometimes he feels fatigued,??and there has been a question as to whether or not??that represents??episodes of A-fib.?? A monitor has been considered in the past. ?? He has had a great??year or 2. ??There has been no chest pain, orthopnea, PND, palpitations, syncope, dyspnea exertion, or lower extremity edema.?? Occasionally he feels fatigued and may be mildly short of breath or lightheaded.?? It happens maybe once a week for a minute or 2 at a time,??and does not seem to bother him really at all.?? He checks blood pressures at home and is consistently getting 120s??over 70s. ??This is a reliable arm cuff. ?? 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 ?? His??pravastatin was recently changed over to atorvastatin. ?? As he is approaching his 64th birthday, we will get a go ahead and make the change??from aspirinover to Eliquis, as his FIB2SW9-MROm score is rising from 1- 2.?? We talked about the various anticoagulants, and he is comfortable taking the Eliquis twice a day??for the??increased??benefit with decreased risk compared to other anticoagulants. Review of Systems A complete review of systems is negative other than as noted in the history of present illness. Physical Exam Vitals & Measurements HR:??58??(Peripheral)?? BP:??135/83?? SpO2:??98%?? HT:??179.07??cm?? WT:??96.05??kg?? BMI:??29.95?? BSA:??2.19?? HEENT: Normocephalic, atraumatic Respirations: Clear to auscultation bilaterally with no wheezes rubs or rhonchi Cardiac: Regular rate and rhythm, normal S1, S2, no murmurs gallops or rubs Abdomen: Nontender nondistended normal active bowel sounds Extremities: 2+ dorsalis pedis pulses bilaterally with no significant edema Medical Decision Making Data Reviewed: EKG:??09/11/2023:??Sinus rhythm at 56 bpm. ??Axes and intervals are within normal limits. ??No evidence of ischemia or prior infarct. ?? 63-year-old gentleman with paroxysmal A-fib. ?? Atrial fibrillation:??He is minimally symptomatic. ??If we believe??that the episodes of fatigue correlate with episodes of atrial fibrillation, he still is having fairly infrequent??episodes.?? We talked about a monitor again; if he starts feeling more episodes, I would certainly have a low threshold for checking a monitor to see what his atrial fibrillation burden is, and whether we need to be moving towards??antiarrhythmics. ??My impression, at this point,??is that??this is not necessary. ?? He is approaching his 64th birthday, and has hypertension.?? This gives him a [id number]-COZw score of2??(at least it would be 2 before we see him again,??and at 63 he already has almost all of the risk of a 65-year-old anyway).?? We are transitioning away from aspirin and towards Eliquis at this point??after discussing the various anticoagulants in very general terms. ?? Hypertension: This seems to be under excellent control. ??No changes to recommend there. ?? He seems to be doing remarkably??well.?? It was a genuine pleasure to meet Carlos. ??I will plan to see him back here in a year; if things remain stable, we can spread visits out to every 2 years, or even potentially??discharging back to primary care, as he is doing quite well and does not necessarily require ongoing??intervention. Clinic Assessment/Plan Atrial fibrillation??I48.91 Actions: ORDERED - apixaban, 5 mg = 1 tab, Oral, BID, # 180 tab, 4 Refill(s), Pharmacy: [facility], 179.07, cm, 09/11/23 13:59:00 EST, Height, 96.05, kg, 09/11/23 14:05:00 EST, Weight Dosing COMPLETED - [id number] Office/Outpatient Visit - Established Patient, Level 4 (30-39 min)., 09/11/23 13:42:00 EST, Atrial fibrillation COMPLETED - CV ECG Clinic, 09/11/23 13:59:00 EST, Routine, Reason: Other (please specify), Stop date and time 09/11/23 13:59:00 EST, Atrial fibrillation, ORD_SET_REQ_DT_RANGE, [facility] Internal Person Id FUTURE - Follow-Up Appointment Request [facility], *Est. 09/11/24 +/- 28 days, Future Order, In Approximately, [facility] ?? Problem List/Past Medical History Ongoing Atrial fibrillation Fatigue Hypertensive disorder Injury of ankle Obstructive sleep apnea syndrome Snoring Historical Sleep disorder Procedure/Surgical History ???Colonoscopy (08/12/2022)???Colonoscopy (03/01/2019)???Appendectomy (1970)???Amputation- Toe???ORIF - Forearm Medications What How Much When Why Instructions New apixaban (Eliquis 5 mg oral tablet) 1 tab Oral (given by mouth) 2 times a day Atrial fibrillation Refills: 4 Pickup at [facility] Unchanged hydroCHLOROthiazide (hydroCHLOROthiazide 12.5 mg oral capsule) 1 Capsules Oral (given by mouth) Every day Unchanged metoprolol (metoprolol succinate 25 mg oral tablet, extended release) Unchanged pravastatin (pravastatin 10 mg oral tablet) Pharmacy Information [facility]: [address], [place] [id number] [phone] ?? What When Comments Stop Taking aspirin (aspirin 81 mg oral capsule) Allergies amoxicillin??(Nausea) sulfa drugs??(Rash) azithromycin erythromycin??(Unknown) Social [...] mRNA-1273 vaccine 12/20/2020 Recorded Electronically Signed on 09/11/23 02:34 PM Kan Gaston MD Patient Care team information Care Team Personnel Name: Joanna DENIS, David Aguilar MD Position: No Access Member Role: Primary Care Physician Address: Address: [address] Care Team Related Persons Name: EPI TRIMBLE Address: Home [address] [place] [address] Name: CANDIDA TRIMBLE Address: Home [address] [facility] [phone] Name: ZORAIDA TRIMBLE Address: Home Name: MICHAEL TRIMBLE Address: Home [address] [place] [phone] Name: MICHAEL TRIMBLE Address: Home [address] [place] [phone]
== END 2023-09-18 09:38 | disposition home or self-care (01) ==
LOC: DIORS 09:38
PROVIDERS: PCP Internal Medicine; Visit Provider Physician Assistant
DX: Z96.641 Presence of right artificial hip joint (principal); Z47.1 Aftercare following joint replacement surgery
CPT/HCPCS: 73502

== ENCOUNTER 2024-09-06 15:13 | Outpatient (CLI) | payer BC, SELFPAY ==
--- NOTE | 2024-09-06 10:15 | DI.RAD_ITS ---
Exam(s) XR HIP RT AP LAT ONLY EXAM: XR HIP RT AP LAT ONLY CLINICAL HISTORY: ANNUAL F/U R [place]. TECHNIQUE: 2D digital imaging was performed. Two images were obtained. AP and lateral views were ob tained. COMPARISON: CR XR HIP RT COMPLETE AP PELVIS from 09/18/2023 FINDINGS: BONES: There are stable post operative changes of a right total hip arthroplasty present. No fractur e or dislocation. JOINTS: The orthopedic hardware is in good position. No evidence of hardware loosening. SOFT TISSUE: Normal. IMPRESSION: Stable right total hip arthroplasty. DATA REPOSITORY: RADIATION DOSE DELIVERED:
== END 2024-09-06 15:14 | disposition home or self-care (01) ==
LOC: DIORS 15:13
PROVIDERS: PCP Internal Medicine; Visit Provider Student in an Organized Health Care Education/Training Program
DX: Z96.641 Presence of right artificial hip joint (principal); Z47.1 Aftercare following joint replacement surgery
CPT/HCPCS: 73502

== ENCOUNTER 2024-10-05 14:04 | Outpatient (REF) | payer BC, SELFPAY ==
--- OUTSIDE RECORDS SUMMARY | 2024-10-05 14:18 | XMS_ITS | Referral Summary ---
Author Organization [facility] Address [address] [place] [address] Care Team Providers Care Welfare Aide Name Role Phone Unknown, Provider MD Primary Care Provider Unava ilable Social History Tobacco Use Types Packs/Day Years Used Date Smoking Tobacco: Never Assessed Interpersonal Safety Answer Date Record ed Physically Hurt Never 04/23/2020 Verbally Threaten Not on file 04/23/2020 Sex and Gender Information Value Date Recorded Sex Assigned at Not on file Legal Sex Male 17:52 EST Gender Identity Not on file Sexual Orientation Not on file Plan of Treatment Not on file Care Teams Welfare Aide Relationship Specialty Start Date End Date Unknown, Provider, PCP - General 03/01/19
--- OUTSIDE RECORDS SUMMARY | 2024-10-05 14:18 | XMS_ITS | Encounter Summary ---
Author Organization [facility] Address [address] [place] [address] Care Team Providers Care Section Laborer Name Role Phone Unknown, Provider Primary Care Provider Unava ilable Encounter Details Date Type Department Care Team (Late st Contact Info) Description 03/01/2019 Results Only [facility] [phone] Maximilian Brewer MD [address] [place] [id number] Social History Tobacco Use Types Packs/Day Years Used Date Smoking Tobacco: Never Assessed Sex and Gender Information Value Date Recorded Sex Assigned at Not on file Legal Sex Male 17:52 EST Gender Identity Not on file Sexual Orientation Not on file documented as of this encounter Plan of Treatment Not on file documented as of this encounter Procedures Procedure Name Priority Date/Time Associated Diagnosis Comments SURGICAL PATHOLOGY Routine 03/01/2019 22 :26 EDT documented in this encounter Results * SURGICAL PATHOLOGY (03/01/2019 22:26 EDT) Pathology Report: SURGICAL PATHOLOGY REPORT Reports generated via electronic interface contain original data; however they are lacking the format of the original report. Caution should be taken when reading/interpret ing unformatted reports. Name: ? CARLOS TRIMBLE ? Accession #: ? [id number] ? : ? 1960 (Age: 58) ??M ? Collect Date: ? 03/01/2019 ? Location: ? [facility] ? Receive Date: ? 03/01/2019 ? Provider: MAXIMILIAN BREWER II, MD Copy to: CHIQUIS SAAVEDRA MD ? Final Pathologic Diagnosis: A. COLON, ASCENDING, POLYPS, BIOPSY: - ??Fragments of tubular adenomas. Document reviewed and electronically signed by: FELIPE RODRIGUES MD Report ??Date: 03/05/2019 08:33 By the signature above, the attending physician certifies that he/she has personally conducted a gross and/or microscopic examination of the described specimens and rendered or confirmed the above diagnosis. Specimen(s) Received: Ascending colon polyps x3 Clinical History: Screening, colon polyps Gross Description: ? Received in formalin labelled with proper patient identification (initials D, B) and ascending colon polyp are 12 howell tissues (0.1 x 0.1 x 0.1 cm to 0.4 x 0.1 x 0.1 cm). Entirely submitted in 1 through 4. Юлия Venegas 03/02/2019 8:14 AM End of Report [facility] 03/01/2019 22:2 6 EDT 03/01/2019 22:26 EDT us Maximilian Brewer MD PATHOLOGY ORDERABLES Final Re sult [facility] [address] [place] [address] documented in this encounter Visit Diagnoses Not on filedocumented in this encounter Care Teams Section Laborer Relationship Specialty Start Date End Date Unknown, Provider, PCP - General 03/01/19 documented as of this encounter
--- OUTSIDE RECORDS SUMMARY | 2024-10-05 14:18 | XMS_ITS | Encounter Summary ---
Author Organization [facility] Address [address] [place] [address] Care Team Providers Care Weather Stripper Name Role Phone Unknown, Provider Primary Care Provider Unava ilable Encounter Details Date Type Department Care Team (Latest Contact Info) Description 03/01/2019 14:23 EDT - 03/01/2019 23:59 EDT Hospital Encounter [address] [address] Unknown, ProviderMD Discharge Disposition: Home or Self Care Social History Tobacco Use Types Packs/Day Years Used Date Smoking Tobacco: Never Assessed Sex and Gender Information Value Date Recorded Sex Assigned at Not on file Legal Sex Male 17:52 EST Gender Identity Not on file Sexual Orientation Not on file documented as of this encounter Discharge Disposition Disposition Code Departure Means Destination Home or Self Detention documented in this encounter Plan of Treatment Not on file documented as of this encounter Visit Diagnoses Not on filedocumented in this encounter Care Teams Weather Stripper Relationship Specialty Start Date End Date Unknown, ProviderMD PCP - General 03/01/19 documented as of this encounter
--- OUTSIDE RECORDS SUMMARY | 2024-10-05 14:18 | XMS_ITS | Clinical Summary ---
Author Organization [facility] Address [address] [place] [address] Care Team Providers Care Head Batcher Name Role Phone Unknown, Provider MD Primary [...] Orientation Not on file Plan of Treatment Health Maintenance Due Date Last Done Comments Hepatitis C Screen 1960 Fall Risk Screening 2024 COVID-19 Vaccine (2023-25 season) 2024 RSV Immunization ( o r 60+ Years) (1 - 1-dose 75+ series) 2034 Care Teams Head Batcher Relationship Specialty Start Date End Date Unknown, Provider, PCP - General 03/01/19
[2024-10-05 19:12] LABS: Hemoglobin A1C 5.8 % (<5.7)
[2024-10-05 19:13] LABS: ALT 58 U/L (16-63); AST 29 U/L (15-37); Alkaline Phosphatase 92 U/L (46-116); BUN 22 mg/dL (7-18); Bilirubin, Total 0.61 mg/dL (0.2-1.0); CREATININE 0.9 mg/dL (0.70-1.30); Calcium 9.6 mg/dL (8.5-10.1); Chloride 106 mmol/L (98-107); Estimated GFR 94.78 (mL/min/1.73m2); Glucose 98 mg/dL (74-106); Potassium 4.4 mmol/L (3.5-5.1); Sodium 142 mmol/L (136-145); Total Protein 7.7 g/dL (6.4-8.2)
[2024-10-07 10:28] LABS: Hepatitis C Ab w Rflx HCV PCR Negative (Negative)
[2024-10-07 10:30] LABS: HIV-1/2 Ag & Ab Screen Negative (Negative)
== END 2024-10-05 14:05 | disposition home or self-care (01) ==
LOC: NCHCN 14:04
PROVIDERS: PCP Internal Medicine; Visit Provider Physician Assistant
DX: Z11.4 Encounter for screening for human immunodeficiency virus [HIV] (principal); Z11.59 Encounter for screening for other viral diseases; I10 Essential (primary) hypertension; R73.03 Prediabetes
CPT/HCPCS: 80053; 86803; 87389; 83036